=== PATIENT | female | born 1945 | race Caucasian/White ===

== ENCOUNTER 2016-04-05 06:55 | Day surgery (SDC) | payer MEDICARE ==
[~2016-04-05 06:55] MED LIST: FENTANYL 250 MCG/5 ML AMP IV PRN; LACTATED RINGERS 1,000 ML IV SCH; LIDOCAINE Viscous 2% 15 ML UDCUP PO PRN; MIDAZOLAM HCL 5 MG/5 ML VIAL IV PRN
[2016-04-05] MEDS ORDERED: IV START KIT ONE (07:02)
[2016-04-05] MEDS ORDERED: FENTANYL 100 MCG/2 ML VIAL ONE (07:48)
[2016-04-05 13:37] LABS: HELICOBACTER PYLORII DETECTION NEGATIVE (NEGATIVE)
--- NOTE | 2016-04-09 08:47 | SURGPATH ---
[facility] [address] [place] [id number] Patient Name: JEREMIAS SUH MR#: [id number] : 1945 Gender: F Specimen #: [id number] Collected: 04/05/2016 Received: 04/06/2016 Reported: 04/09/2016 Submitting Phys: JAMIE JESUS Copy To Phys: [facility] JESSICA LINARES Clinical History / Pre-Operative Diagnosis: CHEST PAIN WITH HEARTBURN; NAUSEA/VOMITING; HISTORY OF LATHAM'S; HIATAL HERNIA; RULE OUT GASTRITIS, ESOPHAGITIS AND LATHAM'S Specimen Source / Surgical Procedure Performed: #1-ANTRAL BIOPSY; #2-ESOPHAGEAL BIOPSY AT 34 CM Interpretation: 1. GASTRIC ANTRUM, BIOPSY: - NO PATHOLOGIC ABNORMALITIES 2. 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 Gross Description: #1 The specimen is received in a formalin filled container labeled with the patient's name and "antral". Two sauceda biopsies are 0.2 and 0.5 cm. Totally embedded in cassette #1. #2 The specimen is received in a formalin filled container labeled with the patient's name and "esophagus at 34 cm". Two silver-sauceda biopsies are 0.2 and 0.5 cm. Totally embedded in cassette #2. Ketan Almeida Microscopic Description: 1. The sections show fragments of gastric mucosa exhibiting a normal architectural pattern. There are no inflammatory or neoplastic features and there are no Helicobacter-like organisms identified. 2. 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 Dysplastic features are not identified. 1: 02139 2: 68180, 3126F K22.70
== END 2016-04-05 09:20 | disposition home or self-care (01) ==
LOC: SDC 06:55
PROVIDERS: ATTEND Internal Medicine Gastroenterology
PROC: 0DB68ZX Excision of Stomach, Via Natural or Artificial Opening Endoscopic, Diagnostic (ICD-10-PCS; principal; 2016-04-05)
PROC: 0DB58ZX Excision of Esophagus, Via Natural or Artificial Opening Endoscopic, Diagnostic (ICD-10-PCS; 2016-04-05)
DX: K22.70 Barrett's esophagus without dysplasia (principal); K21.9 Gastro-esophageal reflux disease without esophagitis; K44.9 Diaphragmatic hernia without obstruction or gangrene; K29.70 Gastritis, unspecified, without bleeding; K29.80 Duodenitis without bleeding; E03.9 Hypothyroidism, unspecified; E11.9 Type 2 diabetes mellitus without complications; E78.5 Hyperlipidemia, unspecified; I10 Essential (primary) hypertension; E66.9 Obesity, unspecified; Z68.37 Body mass index [BMI] 37.0-37.9, adult; Z87.891 Personal history of nicotine dependence; Z88.0 Allergy status to penicillin